=== PATIENT | male | born 1990 | race Caucasian/White ===

== ENCOUNTER 2017-11-01 18:33 | Emergency (ER) | payer OTHER ==
[~2017-11-01] VITALS: Ht 177.8 cm; Wt 68.0 kg
[2017-11-01 18:51] VITALS: BP 143/102
[2017-11-01] MEDS ORDERED: ACETAMINOPHEN 325 MG TABLET PO ONE (19:30)
[2017-11-01] MEDS ORDERED: ACETAMINOPHEN ES 500 MG TABLET ONE (20:32)
--- NOTE | 2017-11-01 20:50 | NUR ---
isidro wrap applied. Crutches dispensed. Pt instructed on proper use of crutches. Patient able to demonstrate correct use of crutches. Patient discharged to home in stable condition. Written and verbal after care instructions given. Patient verbalizes understanding of instruction.
== END 2017-11-01 21:01 | disposition home or self-care (01) ==
LOC: ER 18:35
DX: M25.561 Pain in right knee (principal); X50.1XXA Overexertion from prolonged static or awkward postures, initial encounter; Y93.66 Activity, soccer; Y92.89 Other specified places as the place of occurrence of the external cause; Y99.8 Other external cause status
CPT/HCPCS: 73564-TC; A4606; Z7610

== ENCOUNTER 2018-02-10 18:55 | Emergency (ER) | payer OTHER ==
[~2018-02-10] VITALS: Ht 177.8 cm; Wt 74.8 kg
[2018-02-10] MEDS ORDERED: HYDROCODONE/APAP 5/325MG 1 EACH TABLET PO ONE ×2 (19:00→19:30)
--- NOTE | 2018-02-10 19:03 | NUR ---
PRESENTS TO ER C/O RIGHT ANKLE INJURY WHILE PLAYING SOCCER, 30 MIN [employer]. PATIENTS RIGHT ANKLE IN SEVERE PAIN AND SWOLLEN. UNABLE TO AMBULATE OR BEAR WEIGHT ON RIGHT FOOT. A/OX 4. BREATHING EVEN AND UNLABORED. NO SOB, NAD, VITALS STABLE. SAFETY AND COMFORT MEASURES IN PLACE. ASSISTED TO BED. AWAITING MD ORDERS.
[2018-02-10] MEDS ORDERED: HYDROCODONE/APAP 5/325MG 1 EACH TABLET ONE (19:05)
--- NOTE | 2018-02-10 20:03 | NUR ---
EMT AT BEDSIDE FOR SPLINT.
--- NOTE | 2018-02-10 20:14 | NUR ---
Patient discharged with friend to home in stable condition. Written and verbal after care instructions given, patient instructed not to drive. Patient verbalizes understanding of instruction. Patient demonstrates proper use of crutches upon discharge.
[2018-02-10 20:16] VITALS: BP 115/75
== END 2018-02-10 20:18 | disposition home or self-care (01) ==
LOC: ER 18:59
DX: S92.191A Other fracture of right talus, initial encounter for closed fracture (principal); S93.401A Sprain of unspecified ligament of right ankle, initial encounter; F10.10 Alcohol abuse, uncomplicated; Z88.0 Allergy status to penicillin; Z98.890 Other specified postprocedural states; X58.XXXA Exposure to other specified factors, initial encounter; Y93.66 Activity, soccer; Y92.39 Other specified sports and athletic area as the place of occurrence of the external cause; Y99.8 Other external cause status
CPT/HCPCS: 73610-TC; A4606; Z7610

== ENCOUNTER 2018-02-11 08:22 | Emergency (ER) | payer OTHER ==
[~2018-02-11] VITALS: Ht 170.2 cm; Wt 68.0 kg
[2018-02-11 08:26] VITALS: BP 135/87
== END 2018-02-11 08:42 | disposition home or self-care (01) ==
LOC: ER 08:23
DX: S99.911A Unspecified injury of right ankle, initial encounter (principal); F10.10 Alcohol abuse, uncomplicated; Z98.890 Other specified postprocedural states; Z88.1 Allergy status to other antibiotic agents; X58.XXXA Exposure to other specified factors, initial encounter; Y93.89 Activity, other specified; Y92.89 Other specified places as the place of occurrence of the external cause; Y99.8 Other external cause status
CPT/HCPCS: A4606; Z7610